=== PATIENT | male | born 2000 | race Caucasian/White ===

== ENCOUNTER 2021-11-03 03:37 | Emergency (ER) | payer BC, SELFPAY ==
--- NOTE | ~2021-11-03 | CT_ITS ---
EXAMINATION: CT brain wo con DATE: 11/03/2021 04:45 INDICATION: Transient alteration of awareness. Nausea and vomiting. TECHNIQUE: Computed tomography (CT) of the head was performed without intravenous contrast. Sagittal and coronal reconstructions were performed. The mA was adjusted according to patient size. Iterative reconstruction technique was employed. The dose-length product was 1362.00 mGy-cm. COMPARISON: None FINDINGS: No fracture. No acute intracranial hemorrhage, acute infarction or abnormal extra axial fluid collect ion. Ventricles are normal and symmetric. No mass/mass effect. Mild mucosal thickening the bilateral ethmoid sinuses. The orbits and mastoid air cells are normal. IMPRESSION: 1. Normal brain. No acute intracranial process. Reviewed, dictated and finalized at location A.
[2021-11-03 03:33] VITALS: BP 132/97; PULSE 85; RESP 16; TEMP 36.1; O2SAT 97
--- NOTE | 2021-11-03 03:44 | ED.ALCOHOL ---
HPI - Alcohol General Chief Complaint: Alcohol <Tk Sutherland MD - Last Filed: 11/03/21 07:04> Stated Complaint: ETOH, N/V <Tk Sutherland MD - Last Filed: 11/03/21 07:04> Time Seen by Provider: 11/03/21 03:38 <Tk Sutherland MD - Last Filed: 11/03/21 07:04> Source: EMS and other (By standards) <Tk Sutherland MD - Last Filed: 11/03/21 07:04> History of Present Illness HPI narrative: Patient presents for altered mental status. EMS was called by friends. They report that overall drinking tonight and concerned the patient had too much alcohol as he became less responsive and was throwing up so they called EMS. Patient was responsive to noxious stimuli had emesis. Friends did not report any falls or traumas this evening. <Tk Sutherland MD - Last Filed: 11/03/21 07:04> Review of Systems Review of Systems: ROS unobtainable: Yes unobtainable due to medical condition <Tk Sutherland MD - Last Filed: 11/03/21 07:04> Exam Narrative: GENERAL: Well-appearing, well-nourished, and in no acute distress. HEAD: Normocephalic, atraumatic. EYES: PERRLA and EOMI. ENT: Nares clear, no rhinorrhea or epistaxis. Mucous membranes moist. NECK: Supple. No masses. No JVD CHEST: Clear to auscultation. No respiratory distress. No wheezes rales or rhonchi HEART: Regular rate and rhythm. No murmur heard. Normal peripheral pulses. ABDOMEN: Soft, nontender, nondistended, normal active bowel sounds. EXTREMITIES: Normal range of motion. No edema. SKIN: Warm, dry, no rash. NEURO: No focal deficits. Patient moves all extremities in response to external stimuli somnolent resists exam PSYCH: Normal mood and affect. <Tk Sutherland MD - Last Filed: 11/03/21 07:04> Course Reevaluation(s) Reevaluation #1: Patient continues to rest comfortably patient signed out to Dr. Marie pending metabolization of alcohol and reassessment. <Tk Sutherland MD - Last Filed: 11/03/21 07:04> Patient is more alert and appropriate. Patient is able to ambulate in the room without difficulty. Patient's girlfriend is coming to pick him up. <Arron Marie MD - Last Filed: 11/03/21 17:16> Date: 11/03/21 <Tk Sutherland MD - Last Filed: 11/03/21 07:04> Time: 07:01 <Tk Sutherland MD - Last Filed: 11/03/21 07:04> Vital Signs Vital signs: Vital Signs Temperature 97.0 F L 11/03/21 03:33 Pulse Rate 85 11/03/21 03:33 Respiratory Rate 16 11/03/21 03:33 Blood Pressure 132/97 H 11/03/21 03:33 Pulse Oximetry 97 11/03/21 03:33 Temperature 97.0 F L 11/03/21 03:33 Pulse Rate 80 11/03/21 07:45 Respiratory Rate 16 11/03/21 07:45 Blood Pressure 104/55 L 11/03/21 07:45 Pulse Oximetry 99 11/03/21 07:45 <Tk Sutherland MD - Last Filed: 11/03/21 07:04> Vital Signs Temperature 97.0 F L 11/03/21 03:33 Pulse Rate 85 11/03/21 03:33 Respiratory Rate 16 11/03/21 03:33 Blood Pressure 132/97 H 11/03/21 03:33 Pulse Oximetry 97 11/03/21 03:33 Temperature 97.0 F L 11/03/21 03:33 Pulse Rate 80 11/03/21 07:45 Respiratory Rate 16 11/03/21 07:45 Blood Pressure 104/55 L 11/03/21 07:45 Pulse Oximetry 99 11/03/21 07:45 <Arron Marie MD - Last Filed: 11/03/21 17:16> MDM - Alcohol Lab Data Result diagrams: : 11/03/21 03:46 11/03/21 03:45 <Tk Sutherland MD - Last Filed: 11/03/21 07:04> Labs: Lab Results 11/03/21 11/03/21 11/03/21 Range/Units 03:45 03:45 03:46 WBC (4.5-10.0) K/mm3 RBC (4.6-6.20) M/mm3 Hgb (14.0-18.0) g/dL Hct (42.0-52.0) % MCV (80-100) fl MCH (26-34) pg MCHC (32-36) g/dl RDW (11.5-14.5) % Plt Count (150-375) k/mm3 MPV (7.4-10.4) fl Immature Gran % (Auto) (0-0.5) % Neut % (Auto) (45.5-73.1) % Lymph % (Auto) (18.3-44.2) % [place] % (Auto) (2.6-8.5) % Eos % (Auto) (0-4.4) % Baso %
[2021-11-03 03:58] LABS: Basophils Absolute Auto 0.1 K/mm3 (0.0-0.1); Basophils Percent Auto 1.1 % (0.2-1.2); Eosinophils Absolute Auto 0.1 K/mm3 (0-0.3); Hematocrit 43.6 % (42.0-52.0); Hemoglobin 14.1 g/dL (14.0-18.0); Immature Granulocyte Absolute 0.02 K/mm3 (0.00-0.031); Immature Granulocyte Percent A 0.3 % (0-0.5); Lymphocytes Absolute Auto 2.23 K/mm3 (0.9-3.2); Mean Corpuscular HGB Conc 32.3 g/dl (32-36); Mean Corpuscular Hemoglobin 28.7 pg (26-34); Mean Corpuscular Volume 88.8 fl (80-100); Mean Platelet Volume 8.5 fl (7.4-10.4); Monocytes Absolute Auto 0.6 K/mm3 (0.1-0.6); Neutrophils Absolute Auto 3.3 K/mm3 (1.3-6.7); Neutrophils Percent Auto 52.6 % (45.5-73.1); Platelet Count Result 317 k/mm3 (150-375); Red Blood Count 4.91 M/mm3 (4.6-6.20); Red Cell Distribution Width 13.2 % (11.5-14.5); White Blood Count 6.2 K/mm3 (4.5-10.0)
[2021-11-03 04:00] LABS: Appearance Urine Clear (Clear); Bilirubin Urine Negative (Negative); Blood Urine Negative (Negative); Color Urine Yellow (Yellow); Glucose Urine UA Negative (Negative); Ketones Urine Negative (Negative); Leukocyte Esterase Ur Negative LEU/UL (Negative); Nitrate Urine Negative (Negative); Protein Urine Negative (Negative); Specific Grav Ur <= 1.005 (1.001-1.035); Urobilinogen Urine 0.2 mg/dL (<2.0); pH Urine 5.5 (5.0-9.0)
[2021-11-03 04:08] LABS: Acetaminophen < 10 ug/mL (10-30); Ethanol 277 mg/dL (<10)
[2021-11-03 04:08] LABS: RBC Urine 0-2 /hpf (0-2); Squamous Epithelial Cell Urine Rare /hpf (Few); WBC Urine 0-3 /hpf
[2021-11-03 04:09] LABS: Alanine Aminotransferase 37 U/L (4-50); Albumin Level 4.5 g/dL (3.5-5.1); Alkaline Phosphatase 70 U/L (38-126); Anion Gap 11 mmol/L (8-16); Aspartate Amino Transferase 39 U/L (17-59); Bilirubin,Total 0.3 mg/dL (0.2-1.3); Blood Urea Nitrogen 13 mg/dL (9-20); Calcium 8.4 mg/dL (8.4-10.2); Carbon Dioxide 24 mmol/L (22-30); Chloride 105 mmol/L (98-107); Estimated Glomerular Filt Rate > 60; Glucose 101 mg/dL (65-110); Potassium 3.6 mmol/L (3.4-5.0); Sodium 140 mmol/L (137-145)
[2021-11-03 04:15] LABS: Amphetamine Screen Urine Negative (Negative); Barbiturate Screen Urine Negative (Negative); Benzodiazepines Screen Urine Negative (Negative); Cannabinoid Screen Urine Negative (Negative); Cocaine Screen Urine Negative (Negative); Methadone Screen Urine Negative (Negative); Opiate Screen Urine Negative (Negative); Phencyclidine Screen Urine Negative (Negative)
[2021-11-03 04:34] LABS: Add Urine Microscopic? YES
[2021-11-03] MEDS: THIAMINE HCL INJ 100 MG, FOLIC ACID INJ 1 MG, MULTIVITAMINS-12 INJ VIAL 1 5 ML, MULTIVI... 500 MG IV CONT (04:53)
[2021-11-03 04:54] VITALS: BP 111/53; PULSE 67; RESP 16; O2SAT 98
[2021-11-03 05:50] VITALS: BP 102/65; PULSE 80; RESP 16; O2SAT 98
[2021-11-03 07:15] VITALS: BP 104/61; PULSE 80; RESP 20; O2SAT 99
[2021-11-03 07:45] VITALS: BP 104/55; PULSE 80; RESP 16; O2SAT 99
--- NOTE | 2021-11-03 08:24 | PC.NURSE ---
Awake. Answers questions appropriately. Advised to call for a ride home.
[2021-11-03 08:47] LABS: Ethanol 204 mg/dL (<10)
== END 2021-11-03 08:48 | disposition home or self-care (01) ==
PROVIDERS: Emergency Medicine; Emergency Provider Emergency Medicine
DX: F10.10 Alcohol abuse, uncomplicated (principal); Y90.8 Blood alcohol level of 240 mg/100 ml or more
CPT/HCPCS: 36415; 70450; 80053; 80307; 81001; 85025; 96365; 96366; 99284; J3411; J3475; J7121